=== PATIENT | female | born 1995 | race Caucasian/White ===

== ENCOUNTER 2020-03-22 07:40 | Outpatient (CLI) | payer BC, SELFPAY ==
--- NOTE | ~2020-03-22 | US_ITS ---
US right upper quadrant DATE: 03/22/2020 08:15 INDICATION: Right upper quadrant abdominal pain TECHNIQUE: Preliminary of liver, pancreas, gallbladder areas COMPARISON: None FINDINGS: No hepatic or pancreatic space-occupying mass lesion is evident. Normal hepatopedal portal venous flow direction. There is a 5 mm non-dependent non-mobile non-shadowing filling defect of the gallbladder consistent w ith gallbladder polyp. No gallstones or gallbladder wall thickening or abnormal pericholecystic fluid collection is detected . Negative sonographic Matamoros's sign. 2.8 mm common bile duct caliber, normal. IMPRESSION: 5 mm gallbladder polyp Reviewed, dictated and finalized at [facility] Reviewed, dictated and finalized at [facility]. [employer] IMPRESSION: 5 mm gallbladder polyp
== END 2020-03-22 07:41 | disposition home or self-care (01) ==
PROVIDERS: PCP Family Medicine; Visit Provider Physician Assistant
DX: R10.11 Right upper quadrant pain (principal); K82.4 Cholesterolosis of gallbladder
CPT/HCPCS: 76705